=== PATIENT | female | born 1995 | race Caucasian/White ===

== ENCOUNTER 2017-03-26 08:06 | Day surgery (SDC) | payer BC ==
[~2017-03-26 08:06] MED LIST: Lactated Ringers 1,000 ML IV SCH
[2017-03-26] MEDS ORDERED: fentaNYL 100 MCG/2 ML SDV ONE ×3 (08:54→10:14)
[2017-03-26] MEDS ORDERED: Dexamethasone 4 MG/ML 5 ML MDV ONE (08:54)
[2017-03-26] MEDS ORDERED: Propofol 200 MG/20 ML SDV ONE ×2 (08:54→09:54)
[2017-03-26] MEDS ORDERED: Ondansetron 4 MG/2 ML SDV ONE (08:54)
[2017-03-26] MEDS ORDERED: Midazolam 1 MG/ML 2 ML SDV ONE (08:54)
[2017-03-26] MEDS ORDERED: Ketorolac 30 MG/ML SDV ONE (09:09)
--- NOTE | 2017-03-26 09:39 | PCM.PREANE ---
Preanesthetic Assessment - Anesthesia/Transfusion/Family Hx Anesthesia History: Prior Anesthesia Without Reaction Family History of Anesthesia Reaction: No Transfusion History: No Prior Transfusion(s) - Review of Systems General: No Symptoms Pulmonary: No Symptoms Cardiovascular: No Symptoms Gastrointestinal: No Symptoms Neurological: No Symptoms Other: Reports: None - Physical Assessment NPO Status Date: 03/25/17 NPO Status Time: 19:00 O2 Sat by Pulse Oximetry: 95 Respiratory Rate: 19 Vital Signs: Last Vital Signs Temp 37.0 C 03/26/17 09:27 Pulse 103 H 03/26/17 09:32 Resp 19 03/26/17 09:32 BP 147/93 H 03/26/17 09:32 Pulse Ox 95 03/26/17 09:32 Height: 1.65 m Weight: 103.419 kg ASA Class: 2 Mental Status: Alert & Oriented x3 Airway Class: Mallampati = 2 Dentition: Reports: Normal Dentition ROM/Head Extension: Full Lungs: Clear to Auscultation, Normal Respiratory Effort Cardiovascular: Regular Rate, Regular Rhythm - Lab Values: Laboratory Last Values WBC 8.99 K/uL (4.0-11.0) 03/25/17 14:46 RBC 4.25 M/uL (4.30-5.90) L 03/25/17 14:46 Hgb 10.5 g/dL (12.0-16.0) L 03/25/17 14:46 Hct 33.0 % (36.0-46.0) L 03/25/17 14:46 MCV 77.6 fL (80.0-98.0) L 03/25/17 14:46 MCH 24.7 pg (27.0-32.0) L 03/25/17 14:46 MCHC 31.8 g/dL (31.0-37.0) 03/25/17 14:46 RDW Std Deviation 45.4 fl (28.0-62.0) 03/25/17 14:46 RDW Coeff of Shelby 16 % (11.0-15.0) H 03/25/17 14:46 Plt Count 335 K/uL (150-400) 03/25/17 14:46 MPV 9.00 fL (7.40-12.00) 03/25/17 14:46 Neut % (Auto) 54.5 % (48.0-80.0) 03/25/17 14:46 Lymph % (Auto) 35.7 % (16.0-40.0) 03/25/17 14:46 Patrick % (Auto) 5.1 % (0.0-15.0) 03/25/17 14:46 Eos % (Auto) 4.3 % (0.0-7.0) 03/25/17 14:46 Baso % (Auto) 0.4 % (0.0-1.5) 03/25/17 14:46 Neut # (Auto) 4.9 K/uL (1.4-5.7) 03/25/17 14:46 Lymph # (Auto) 3.2 K/uL (0.6-2.4) H 03/25/17 14:46 Patrick # (Auto) 0.5 K/uL (0.0-0.8) 03/25/17 14:46 Eos # (Auto) 0.4 K/uL (0.0-0.7) 03/25/17 14:46 Baso # (Auto) 0.0 K/uL (0.0-0.1) 03/25/17 14:46 Nucleated RBC % 0.0 /100WBC 03/25/17 14:46 Nucleated RBCs # 0 K/uL 03/25/17 14:46 HCG, Qual NEGATIVE (NEG) 03/25/17 14:46 - Allergies Allergies/Adverse Reactions: Allergies Allergy/AdvReac Type Severity Reaction Status Date / Time No Known Allergies Allergy Verified 03/23/17 11:38 - Acknowledgements Anesthesia Type Planned: MAC Pt an Appropriate Candidate for the Planned Anesthesia: Yes Alternatives and Risks of Anesthesia Discussed w Pt/Guardian: Yes Pt/Guardian Understands and Agrees with Anesthesia Plan: Yes PreAnesthesia Questionnaire HEENT History: Reports: Allergic Rhinitis, Other (See Below) Other HEENT History: wears glasses/contacts, hx of fx nose Cardiovascular History: ACCREDITED PHARMACY TECHNICIAN History: Reports: Polycystic Ovaries Neurological History: Reports: None Endocrine/Metabolic History: Reports: Hypothyroidism, Obesity/BMI 30+ - Past Surgical History HEENT Surgical History: Reports: Tonsillectomy - SUBSTANCE USE Smoking Status *Q: Never Smoker Recreational Drug Use History: No - HOME MEDS Home Medications: Home Meds Cetirizine [ZyrTEC] 10 mg PO DAILY 03/23/17 [History] Levothyroxine 25 mg PO DAILY 03/23/17 [History] medroxyPROGESTERone Acetate [Medroxyprogesterone Acetate] 10 mg PO DAILY [History] - CURRENT (IN HOUSE) MEDS Current Meds: Current Medications Lactated Ringer's (Ringers, Lactated) 1,000 mls @ 125 mls/hr IV ASDIRECTED RUFUS Last Admin: 03/26/17 08:25 Dose: 125 mls/hr Discontinued Medications Dexamethasone (Dexamethasone) Confirm Administered Dose 20 mg .ROUTE .STK-MED ONE Stop: 03/26/17 08:55 Fentanyl (Sublimaze) Confirm Administered Dose 100 mcg .ROUTE .STK-MED ONE Stop: 03/26/17 08:55 Fentanyl (Sublimaze) Confirm Administered Dose 100 mcg .ROUTE .STK-MED ONE Stop: 03/26/17 08:56 Ketorolac Tromethamine (Toradol) Confirm Administered Dose 30 mg .ROUTE .STK- MED ONE Stop: 03/26/17 09:10 Lidocaine HCl (Xylocaine-Mpf 1%) Confirm Administered Dose 5 ml .ROUTE .STK-MED ONE Stop: 03/26/17 08:55 Midazolam HCl (Versed 1 Mg/Ml) Confirm Administered Dose 2 mg .ROUTE .STK-MED ONE Stop: 03/26/17 08:55 Ondansetron HCl (Zofran) Confirm Administered Dose 4 mg .ROUTE .STK-MED ONE Stop: 03/26/17 08:55 Propofol (Diprivan 20 Ml) Confirm Administered Dose 200 mg .ROUTE .STK-MED ONE Stop: 03/26/17 08:55
--- NOTE | 2017-03-26 09:52 | PCM.OPNOTE ---
- General Post-Op/Procedure Note Date of Surgery/Procedure: 03/26/17 Operative Procedure(s): Hysteroscopy, polypectomy, fractional D&C Findings: 6-8 week size uterus, multiple polyps and polypoid structures, removed and sent to pathology. Pre Op Diagnosis: Abnormal uterine bleeding. Post-Op Diagnosis: Uterine polyps Anesthesia Technique: General ET Tube, General LMA Primary Surgeon: Nneka Chaparro Anesthesia Provider: Robbi Goodman Human Resources Project Manager: Jamari Vázquez Pathology: Polypoid masses, endocervical brushings, endometrial curettage Fluid Replacement, Intraop: 900 EBL in mLs: 25 Drain/Tube Comments:: Hysteroscopic deficit 150 NS Complications: None known Condition: Good
[2017-03-26] MEDS: fentaNYL 100 MCG/2 ML SDV IVPUSH PRN ×2 (10:16→10:21)
--- NOTE | 2017-03-26 10:41 | PCM48HPAN ---
Post Anesthesia Note - EVALUATION WITHIN 48HRS OF ANESTHETIC Vital Signs in Normal Range: Yes Patient Participated in Evaluation: Yes Respiratory Function Stable: Yes Airway Patent: Yes Cardiovascular Function Stable: Yes Hydration Status Stable: Yes Pain Control Satisfactory: Yes Nausea and Vomiting Control Satisfactory: Yes Mental Status Recovered: Yes
--- NOTE | 2017-03-26 10:41 | PCM.POSTAN ---
POST ANESTHESIA ASSESSMENT - MENTAL STATUS Mental Status: Alert, Oriented - RESPIRATORY Respiratory Status: Respiratory Rate WNL, Airway Patent, O2 Saturation Stable - CARDIOVASCULAR CV Status: Pulse Rate WNL, Blood Pressure Stable - GASTROINTESTINAL GI Status: No Symptoms - PAIN Pain Score: 1 - POST OP HYDRATION Hydration Status: Adequate & Stable
--- NOTE | 2017-03-26 14:05 | OR ---
SURGEON: Nneka Chaparro M.D. DATE OF PROCEDURE: 03/26/2017 PREOPERATIVE DIAGNOSES: 1. Menometrorrhagia with anemia. 2. Uterine polyps. POSTOPERATIVE DIAGNOSES: 1. Menometrorrhagia with anemia. 2. Uterine polyps. PROCEDURE: Hysteroscopic polypectomy with fractional dilation and curettage. PROJECTOR BOOTH OPERATOR: YULIET Lehman3. ANESTHESIA: General endotracheal. FLUIDS: 900 mL crystalloid. ESTIMATED BLOOD LOSS: Minimal. HYSTEROSCOPIC DEFICIT: 150 mL. FINDINGS: Uterus was anteverted 8-week size, sounded to 8 cm. Upon initial hysteroscopic evaluation, there were multiple polyps and polypoid structures with non- visualization of the uterine cornu or tubal ostia after the MyoSure was utilized to remove polyps and excess tissue. Bilateral cornua were identified, however, the tubal ostia still could not be identified. COMPLICATIONS: None known. DISPOSITION: Stable to recovery. BRIEF HISTORY: This is a 22-year-old female. She presents with irregular bleeding since June. This has been attempted to be controlled with continuous oral contraceptive pills, cyclic oral contraceptive pills, and most recently with Provera, which did finally help her to stop bleeding. Her hemoglobin is 10.4, preoperatively, she has been bleeding continuously for approximately 5 to 6 months. She did undergo a saline enhanced ultrasound in office, which did show at least 1 uterine polyp. The endometrial thickness was approximately 7 mm. There were multiple other areas of tissue, which were felt to be potentially clot at that time. She agrees to proceed with a hysteroscopic evaluation of the uterine cavity with possible polypectomy, possible myomectomy, directed biopsies, and fractional D and C, with risks discussed including bleeding, infection, uterine perforation with injury to visceral organs, risk of fluid overload, and risk of Asherman syndrome. Understanding all these risks, she does desire to proceed. DESCRIPTION OF PROCEDURE: With the patient in the dorsal lithotomy position, under adequate general endotracheal anesthesia, the perineum and vagina were prepped with Betadine and draped in usual fashion for hysteroscopic surgery. Bimanual examination was performed. Speculum was placed in the vagina. The anterior lip of the cervix was grasped with an Allis clamp. The cervix was dilated to 7 mm with Hegar dilator. The 6.25 mm hysteroscope 0 degree was placed into the uterine cavity and using normal saline as a distending medium using the hysteroscopic fluid management system. There was excellent visualization, however, initially multiple polyps were all that could be visualized. Therefore, the MyoSure was introduced, multiple polyps were removed as well as excess endometrial tissue. I was then able to see the cornua. I extended the scope as far as I could safely into the cornua and continued to use the MyoSure to remove the excess tissue. With this the cornua became more visible, however, the tubal ostia never were visualized and I did not feel that I could safely remove anymore tissue from the uterine cornu without risking perforation. This being completed, the hysteroscope was removed. Sharp curettage was performed of the endometrium starting at the 12 o'clock position and proceeding in a clockwise manner. A small amount of tissue was obtained. Prior to proceeding with and endometrial curettings, endocervical curettings were obtained using a sharp box curette and collecting the tissue with a Cytobrush. All of the instruments were then removed from the vagina. Final sponge, needle, and instrument counts were reported as correct. There were no known complications. The patient was transferred to recovery in good condition. RAFY BRUCE /[id number] GREG
== END 2017-03-26 11:15 | disposition home or self-care (01) ==
LOC: MW.SDS 08:06
PROVIDERS: ATTEND Obstetrics & Gynecology
PROC: 0UBC8ZZ Excision of Cervix, Via Natural or Artificial Opening Endoscopic (ICD-10-PCS; principal; 2017-03-26)
PROC: 0UDB8ZZ Extraction of Endometrium, Via Natural or Artificial Opening Endoscopic (ICD-10-PCS; 2017-03-26)
DX: N87.9 Dysplasia of cervix uteri, unspecified (principal); E28.2 Polycystic ovarian syndrome; E03.9 Hypothyroidism, unspecified; E66.9 Obesity, unspecified; Z90.89 Acquired absence of other organs; Z79.899 Other long term (current) drug therapy; Z68.37 Body mass index [BMI] 37.0-37.9, adult
CPT/HCPCS: 36415; 58558; 84703; 85025; J1100; J1885; J2250; J2405; J3010; J7120; 00952; 88305; J2704